=== PATIENT | male | born 1965 | race Caucasian/White ===

== ENCOUNTER 2020-11-04 15:38 | Emergency (ER) | payer MEDICAID ==
[~2020-11-04] VITALS: Ht 175.3 cm; Wt 89.8 kg
[2020-11-04 15:40] VITALS: BP 135/71
--- NOTE | 2020-11-04 16:00 | NUR ---
55 y/o male from home c/o left head, left arm, and left back and leg pain s/p falling approx 8 ft from roof. Denies LOC. Tender to palpation. Eccymosis to left eye. Awake and alert. 10/10 pain. VSS medhx: denies
[2020-11-04] MEDS ORDERED: ACETAMINOPHEN EXTRA STRENGTH 500 MG TAB PO ONE (16:15)
[2020-11-04] MEDS ORDERED: HYDROcodone/APAP 5/325 MG 1 TAB TAB PO ONE (16:15)
--- NOTE | 2020-11-04 16:41 | NUR ---
PT REFUSED TDAP, AWARE OF RISKS. ERMD MADE AWARE. TDAP MED WASTED
--- NOTE | 2020-11-04 17:45 | NUR ---
ALINA GONSALEZ INCENTIVE SPIROMTERY PERFORMED X 10 BREATHS 950ml ERMD AWARE
[2020-11-04 18:27] VITALS: BP 135/71
--- NOTE | 2020-11-04 18:28 | NUR ---
Patient discharged with v/s stable. Written and verbal after care instructions given and explained. Patient alert, oriented and verbalized understanding of instructions. Ambulatory with steady gait. All questions addressed prior to discharge. ID band removed. Patient advised to follow up with PMD. Rx of Lidoderm patch, Motrin 600mg and [place] 5mg-325mg given. Patient educated on indication of medication including possible reaction and side effects. Opportunity to ask questions provided and answered.
== END 2020-11-04 18:28 | disposition home or self-care (01) ==
LOC: MED 15:38
DX: S22.42XA Multiple fractures of ribs, left side, initial encounter for closed fracture (principal); S00.91XA Abrasion of unspecified part of head, initial encounter; W17.89XA Other fall from one level to another, initial encounter; Y93.89 Activity, other specified; Y92.89 Other specified places as the place of occurrence of the external cause; Y99.8 Other external cause status
CPT/HCPCS: 70450; 71101; 73030; 90715; 99284